=== PATIENT | male | born 1995 | race Two or more races ===

== ENCOUNTER 2017-10-27 01:25 | Emergency (ER) | payer OTHER ==
[~2017-10-27] VITALS: Ht 188 cm; Wt 83.8 kg
[2017-10-27 02:44] VITALS: BP 124/78
== END 2017-10-27 02:45 | disposition home or self-care (01) ==
LOC: EME 01:25
PROC: 0HQFXZZ Repair Right Hand Skin, External Approach (ICD-10-PCS; principal; 2017-10-27)
DX: S61.212A Laceration without foreign body of right middle finger without damage to nail, initial encounter (principal); W25.XXXA Contact with sharp glass, initial encounter; Y93.B2 Activity, push-ups, pull-ups, sit-ups; F17.200 Nicotine dependence, unspecified, uncomplicated
CPT/HCPCS: 99281; 99284